=== PATIENT | female | born 1970 | race Caucasian/White ===

== ENCOUNTER 2018-09-12 07:07 | Day surgery (SDC) | payer OTHER ==
[2018-09-12] MEDS ORDERED: MIDAZOLAM HCL 2MG/2ML VIAL IV ONE (07:08)
[2018-09-12] MEDS ORDERED: LIDOCAINE 1% W/EPI 1:200,000 MPF 30ML SQ ONE (07:08)
[2018-09-12] MEDS ORDERED: LIDOCAINE 2% MDV (20MG/ML) 20ML VIAL IV ONE (07:08)
[2018-09-12] MEDS ORDERED: FENTANYL PF 100MCG/2ML VIAL IV ONE (07:08)
[2018-09-12] MEDS ORDERED: DEXAMETHASONE PRESERVATIVE FREE 10MG/ML VIAL IV ONE (07:08)
[2018-09-12] MEDS ORDERED: BUPIVACAINE 0.5% W/EPI MPF 30 ML VIAL IVP ONE (07:08)
--- NOTE | 2018-09-13 20:15 | Operative Note ---
DATE OF SURGERY: 09/12/2018. PREOPERATIVE DIAGNOSIS: CERVICAL SPONDYLOSIS WITHOUT MYELOPATHY, ICD-10 CODE = M47.812. SURGERY: RADIOFREQUENCY RHIZOTOMY LEFT CERVICAL FACETS 3-4, 4-5, 5-6, AND 6-7. SURGEON: LEIGHTON FITZGERALD D.O. ANESTHESIA: LOCAL SEDATION. ANESTHESIA PROVIDER: RICHIE HERNANDEZ CRNA. INDICATION: This patient presents with primary neck pain. Examination showed tenderness in the cervical spine, left. Range of motion does cause pain to the neck and shoulder. Diagnostics showed multiple levels of spondylosis. PROCEDURE: Intravenous line, vital sign monitoring, IV sedation, prepped, draped, sterile technique. Under imaging, facets on the left consistent with the diagnostic facet blocks at 3-4, 4-5, 5-6, and 6-7 marked and infiltrated. # 22 gauge rhizotomy cannulas positioned. Stimulation trials conducted. Rhizotomy burn performed. Local with anti-inflammatory into the sites. Topical antibiotics. Sterile dressing was applied. We will monitor and evaluate. cc: Dr. Aldana JOB NUMBER: [id number] MTDD
== END 2018-09-12 09:24 | disposition home or self-care (01) ==
LOC: SUR 07:07
PROVIDERS: ATTEND Pain Medicine Interventional Pain Medicine
DX: M47.812 Spondylosis without myelopathy or radiculopathy, cervical region (principal)
CPT/HCPCS: 64633; 64634 ×3; 01936; J1100; J3010